=== PATIENT | male | born 1955 | race Caucasian/White ===

== ENCOUNTER 2018-12-30 18:34 | Emergency (ER) | payer SELFPAY ==
[~2018-12-30] VITALS: Ht 182.9 cm; Wt 79.8 kg
[~2018-12-30 18:34] MED LIST: HYDR25TA4 PO; LISI10TA5 PO
--- NOTE | 2018-12-30 19:20 | NUR ---
PT C/O NAUSEA/VOMITTING WITH DIZZINESS SINCE LAST NIGHT. PT AXO4. RESPIRATIONS EVEN AND UNLABORED. 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 PENDING EVAL FROM ER .
[2018-12-30] MEDS ORDERED: ONDANSETRON HCL/PF 4 MG/2 ML VIAL ONE (19:55)
[2018-12-30] MEDS: IV NS 0.9% 1,000 ML BAG IV ONE (20:00)
[2018-12-30] MEDS: ONDANSETRON HCL/PF 4 MG/2 ML VIAL IVP ONE (20:00)
--- NOTE | 2018-12-30 20:02 | NUR ---
LAB AT BEDSIDE FOR BLOOD DRAW
[2018-12-30 20:09] LABS: BASOPHILS # (AUTO) 0.1 /CMM (0.0-0.2); BASOPHILS % (AUTO) 0.5 % (0.0-2.0); EOSINOPHILS % (AUTO) 0.1 % (0.0-6.0); HEMATOCRIT 53 % (39-51); HEMOGLOBIN 18.1 g/dL (13.5-17.5); LYMPHOCYTES # (AUTO) 0.9 /CMM (0.8-4.8); LYMPHOCYTES % (AUTO) 5.3 % (20.0-44.0); MEAN CORPUSCULAR HGB CONC 34 g/dl (31.0-36.0); MEAN CORPUSCULAR VOLUME 100 fL (80-96); MONOCYTES # (AUTO) 0.3 /CMM (0.1-1.30); MONOCYTES % (AUTO) 1.9 % (2.0-12.0); NEUTROPHILS # (AUTO) 15.1 /CMM (1.8-8.9); NEUTROPHILS % (AUTO) 92.2 % (43.0-81.0); PLATELET COUNT (AUTO) 298 /CMM (150-450); RED BLOOD CELL COUNT(AUTO) 5.29 MIL/uL (4.5-6.0); WHITE BLOOD COUNT (AUTO) 16.4 K/uL (4.3-11.0)
[2018-12-30 20:18] LABS: CALCIUM, SERUM 9.4 mg/dL (8.5-10.1); CARBON DIOXIDE 27 mmol/L (21-32); CHLORIDE 102 mmol/L (98-107); CREATININE 0.8 mg/dL (0.6-1.3); GLUCOSE 131 mg/dL (74-106); POTASSIUM 3.8 mmol/L (3.5-5.1); SODIUM SERUM 137 mmol/L (136-145); UREA NITROGEN, BLOOD 12 mg/dL (7-18)
[2018-12-30] MEDS ORDERED: AMLODIPINE BESYLATE 5 MG TABLET ONE (20:21)
[2018-12-30] MEDS: AMLODIPINE BESYLATE 5 MG TABLET PO ONE (20:24)
--- NOTE | 2018-12-30 20:27 | NUR ---
BP NOTED AT 198/109. MADE AWARE. RECEIVED ORDER [facility]
[2018-12-30 20:34] LABS: ALANINE AMINOTRANSFERASE 28 U/L (12-78); ALBUMIN 3.9 g/dL (3.4-5.0); ALKALINE PHOSPHATASE 70 U/L (46-116); ASPARTATE AMINOTRANSFERASE 14 U/L (15-37); BILIRUBIN,DIRECT 0.1 mg/dL (0.0-0.2); BILIRUBIN,TOTAL 0.4 mg/dL (0.2-1.0); LIPASE 97 U/L (73-393); TOTAL PROTEIN, SERUM 8.3 g/dL (6.4-8.2)
[2018-12-30 21:05] LABS: LYMPHOCYTES % (MANUAL) 5 % (16-48); MONOCYTES % (MANUAL) 2 % (0-11.0); NEUTROPHILS % (MANUAL) 93 (42-76)
--- NOTE | 2018-12-30 21:36 | NUR ---
Abdirizak Ervin, Son Contact Info: [phone]
--- NOTE | 2018-12-30 21:40 | NUR ---
URINE COLLECTED. SENT TO LAB
[2018-12-30 21:59] LABS: APPEARANCE,URINE Clear (CLEAR); BILIRUBIN,URINE Negative (NEGATIVE); BLOOD, URINE Trace-intact Ery/uL (NEGATIVE); COLOR,URINE Yellow (YELLOW); KETONES,URINE 15 (NEGATIVE); LEUKOCYTE ESTERASE ,URINE Negative (NEGATIVE); NITRITE, URINE Negative (NEGATIVE); PH,URINE 7.5 (5.0-8.0); PROTEIN,URINE Negative (NEGATIVE); UGLUCOSE Negative (NEGATIVE); UROBILINOGEN,URINE 0.2 EU/dL (0.2)
[2018-12-30] MEDS ORDERED: IV NS 0.9% 250 ML IV ONE (22:01)
[2018-12-30] MEDS ORDERED: IOHEXOL-300 100 ML VIAL IV ONE (22:01)
[2018-12-30] MEDS ORDERED: CT SWABBABLE VALVE TRANS SET 1 EA INFUS.SET MC ONE (22:01)
[2018-12-30 22:12] LABS: BACTERIA,URINE Few /HPF (None Seen); SQUAMOUS EPITHELIAL CELL,UR Few /HPF (None Seen); WBC,URINE 0-2 /HPF (0-3)
[2018-12-30 22:13] LABS: RBC,URINE 0-2 /HPF (0-2); URINE AMORPHOUS URATE Few /HPF (None Seen)
--- NOTE | 2018-12-30 22:16 | NUR ---
PT RETURNED FROM CT
[2018-12-30] MEDS ORDERED: CIPROFLOXACIN IV RTU 200 ML IV ONE (23:04)
[2018-12-30] MEDS: CIPROFLOXACIN IV RTU 400 MG in PREMIX 1 EA IV SCH (23:15)
[2018-12-31] MEDS ORDERED: METRONIDAZOLE 500MG/ NS 100ML 100 ML IV ONE (00:17)
[2018-12-31] MEDS: FLAGYL/NS RTU 500 MG/100 ML PIGGYBACK IV ONE (00:20)
--- NOTE | 2018-12-31 02:30 | NUR ---
Patient discharged to home in stable condition. Written and verbal after care instructions given. Patient verbalizes understanding of instruction. IV removed. Catheter intact and site benign. Pressure and 4x4 applied to site. No bleeding noted. PT ambulatory with a steady gait.
[2018-12-31 03:06] VITALS: BP 130/88
== END 2018-12-31 02:30 | disposition home or self-care (01) ==
LOC: ER 18:34
DX: K57.32 Diverticulitis of large intestine without perforation or abscess without bleeding (principal); R53.1 Weakness; R11.2 Nausea with vomiting, unspecified; I10 Essential (primary) hypertension; Z79.899 Other long term (current) drug therapy
CPT/HCPCS: 36415; 71045; 74177; 80048; 80076; 81001; 83690; 84484; 85025; 93005; 96361; 96365; 96367; 96375; 99284; A4216; J0744 ×2; J2405; J3490; J7030; J7050; Q9967; 81000-TC; 87086-TC